=== PATIENT | female | born 1955 | race Caucasian/White ===

== ENCOUNTER 2017-07-21 09:21 | Inpatient (IN) | payer OTHER ==
[2017-07-21] MEDS ORDERED: GELATIN SIZE 100 SPONGE (10:14)
[2017-07-21] MEDS ORDERED: SURGIFOAM POWDER 1 GM KIT (10:14)
[2017-07-21] MEDS ORDERED: LIDOCAINE 1%/EPI 30 ML INJ (10:14)
[2017-07-21] MEDS ORDERED: THROMBIN 5000 UNIT VIAL (10:14)
[2017-07-21] MEDS ORDERED: HEPARIN 1000 UNITS/ML 10 ML INJ (10:15)
[2017-07-21] MEDS: D5W-0.45 NACL + KCL 20 MEQ 1,000 ML IV (12:06)
[2017-07-21] MEDS ORDERED: FENTAnyl 50 MCG/ML VIAL (12:11)
[2017-07-21] MEDS ORDERED: MIDAZOLAM 1 MG/ML 2 ML INJ (12:13)
[2017-07-21] MEDS ORDERED: LIDOCAINE 2% (SDV) 5 ML INJ (12:14)
[2017-07-21] MEDS ORDERED: PROPOFOL 20 ML (12:14)
[2017-07-21] MEDS ORDERED: SUCCINYLCHOLINE CHLORIDE 100 MG/5 ML SYG IV (12:14)
[2017-07-21] MEDS ORDERED: ROCURONIUM 50 MG INJ ×2 (12:14)
[2017-07-21] MEDS ORDERED: ONDANSETRON 4 MG INJ IV ×2 (12:30→14:00)
[2017-07-21] MEDS ORDERED: HYDROmorphONE 0.2 MG/ML PCA IV (12:30)
[2017-07-21] MEDS ORDERED: BISACODYL 10 MG SUPP PR (12:30)
[2017-07-21] MEDS ORDERED: ACETAMINOPHEN 325 MG TAB PO (12:30)
[2017-07-21] MEDS ORDERED: AL HYDROX/MG HYDROX/SIMETH 30 ML CUP PO (12:30)
[2017-07-21] MEDS ORDERED: DIPHENHYDRAMINE 50 MG INJ IV (12:30)
[2017-07-21] MEDS ORDERED: NALOXONE (0.4 MG/ML) INJ IV (12:30)
[2017-07-21] MEDS: CEFAZOLIN 1 GM/50 ML (PMX) 50 ML IVPB (12:30)
[2017-07-21] MEDS ORDERED: HYDROmorphONE 0.5 MG/0.5 ML SYG IV (12:30)
[2017-07-21] MEDS ORDERED: HYDROCODONE/APAP (10/325) TAB PO ×2 (12:30)
[2017-07-21] MEDS ORDERED: CEPASTAT LOZENGE MT (12:30)
[2017-07-21] MEDS ORDERED: CYCLOBENZAPRINE 10 MG TAB PO (12:30)
[2017-07-21] MEDS ORDERED: PHENYLephrine (100 MCG/ML) 5ML SYG (12:39)
[2017-07-21] MEDS ORDERED: PHENYLephrine 10 MG INJ (12:59)
[2017-07-21] MEDS ORDERED: NACL 0.9% 3 ML SYG IV (14:00)
[2017-07-21] MEDS ORDERED: DOCUSATE SODIUM 100 MG CAP PO ×2 (14:00→21:00)
[2017-07-21] MEDS: SOD CHLORIDE 0.9% 1,000 ML IV ×2 (15:02→20:56)
[2017-07-21 15:05] LABS: ADD MAN DIFF? NO
[2017-07-21 15:12] LABS: BASOPHIL # 0.1 10^3/ul (0.0-0.1); BASOPHILS % 0.6 % (0.0-2.0); EOSINOPHILS % 0.4 % (0.0-7.0); HEMATOCRIT 41.9 % (37.0-47.0); LYMPHOCYTES # 1.9 10^3/ul (0.8-2.9); LYMPHOCYTES % 23.8 % (15.0-51.0); MEAN CORPUSCULAR HEMOGLOBIN 29.9 pg (29.0-33.0); MEAN CORPUSCULAR HGB CONC 33.4 g/dl (32.0-37.0); MEAN CORPUSCULAR VOLUME 89.3 fl (82.0-101.0); MONOCYTE # 0.7 10^3/ul (0.3-0.9); MONOCYTES % 8.1 % (0.0-11.0); NEUTROPHIL # 5.4 10^3/ul (1.6-7.5); NEUTROPHILS % 66.7 % (39.0-77.0); PLATELET COUNT 275 10^3/UL (140-415); RED BLOOD COUNT 4.69 10^6/ul (4.20-5.40); RED CELL DISTRIBUTION WIDTH 12.5 % (11.5-14.5)
[2017-07-21 15:12] LABS: WHITE BLOOD COUNT 8.1 10^3/ul (4.8-10.8)
[2017-07-21 15:32] LABS: ANION GAP 13 (8-16); BLOOD UREA NITROGEN 15 mg/dl (7-20); CALCIUM 8.8 mg/dl (8.4-10.2); CARBON DIOXIDE 25 mmol/L (21-31); CHLORIDE 107 mmol/L (97-110); GLUCOSE 88 mg/dl (70-220); MAGNESIUM 1.8 mg/dl (1.7-2.5); POTASSIUM 4.4 mmol/L (3.5-5.1); SODIUM 141 mmol/L (135-144)
[2017-07-21] MEDS: PHENYLephrine 20MG IN 250 ML 250 ML IV (15:39)
[2017-07-21 15:43] LABS: TROPONIN-I 0.021 ng/ml (0.00-0.12)
[2017-07-21] MEDS: AMIODARONE 150MG/D5W BOLUS 100 ML IV (15:45)
[2017-07-21] MEDS: DILTIAZEM-D5W 125MG/125ML DRIP 125 ML IV (16:50)
[2017-07-21] MEDS: ALPRAZOLAM 0.25 MG TAB PO (18:20)
[2017-07-21] MEDS: DIGOXIN 500 MCG INJ IV ×2 (19:05→21:01)
[2017-07-21] MEDS: MAGNESIUM SULFATE 2 GM/50 ML 50 ML IVPB (19:05)
[2017-07-21 20:34] LABS: TROPONIN-I 0.021 ng/ml (0.00-0.12)
[2017-07-21] MEDS: ZOLPIDEM 5 MG TAB PO (21:01)
[2017-07-21] MEDS: ENOXAPARIN 80 MG/0.8 ML SYG SC (21:03)
[2017-07-21] MEDS: PHENYLephrine 40 MG in DEXTROSE 5% 496 ML IV (22:13)
[2017-07-22] MEDS: DILTIAZEM-D5W 125MG/125ML DRIP 125 ML IV (01:26)
[2017-07-22] MEDS: ALPRAZOLAM 0.25 MG TAB PO (01:56)
[2017-07-22] MEDS: HYDROCODONE/APAP (5/325) TAB PO ×2 (01:57→08:40)
[2017-07-22] MEDS: PHENYLephrine 40 MG in DEXTROSE 5% 496 ML IV ×2 (03:24→16:06)
[2017-07-22] MEDS: ACETAMINOPHEN 325 MG TAB PO (04:11)
[2017-07-22 05:18] LABS: ABNORMAL IP MESSAGE 1; HEMATOCRIT 38.3 % (37.0-47.0); HEMOGLOBIN 12.9 g/dl (12.0-16.0); MEAN CORPUSCULAR HEMOGLOBIN 30.1 pg (29.0-33.0); MEAN CORPUSCULAR HGB CONC 33.7 g/dl (32.0-37.0); MEAN CORPUSCULAR VOLUME 89.3 fl (82.0-101.0); MEAN PLATELET VOLUME 10.2 fl (7.4-10.4); PLATELET COUNT 267 10^3/UL (140-415); RED BLOOD COUNT 4.29 10^6/ul (4.20-5.40); RED CELL DISTRIBUTION WIDTH 12.9 % (11.5-14.5)
[2017-07-22 06:01] LABS: ANION GAP 15 (8-16); BLOOD UREA NITROGEN 12 mg/dl (7-20); CALCIUM 8.3 mg/dl (8.4-10.2); CARBON DIOXIDE 25 mmol/L (21-31); CHLORIDE 108 mmol/L (97-110); CREATININE 0.79 mg/dl (0.44-1.00); GLUCOSE 140 mg/dl (70-220); MAGNESIUM 2.3 mg/dl (1.7-2.5); PHOSPHORUS 3.1 mg/dl (2.5-4.9); POTASSIUM 4.7 mmol/L (3.5-5.1); SODIUM 143 mmol/L (135-144)
[2017-07-22] MEDS: SOD CHLORIDE 0.9% 1,000 ML IV ×4 (06:14→20:46)
[2017-07-22 06:19] LABS: ADD MAN DIFF? YES; POSITIVE DIFF @See below
[2017-07-22] MEDS: ENOXAPARIN 80 MG/0.8 ML SYG SC (08:39)
[2017-07-22 10:54] LABS: ANISOCYTOSIS 2+ (0-0); GIANT THROMBO% (M) 1 % (0-0); LYMPHOCYTES % (M) 12 % (15-51); MICROCYTOSIS 2+ (0-0); MONOCYTE #M 0.6 10^3/ul (0.3-0.9); MONOCYTES % (M) 7 % (0-11); MYELOCYTES % (M) 1 % (0-0); PLATELET ESTIMATE NORMAL; POLYCHROMASIA 2+ (0-0); REACTIVE LYMPHOCYTES% (M) 1 % (0-0); SEGMENTED NEUTROPHILS (M) % 79 % (39-77); SMUDGE%M 1 % (0-0)
[2017-07-22] MEDS: IBUPROFEN 400 MG TAB PO (11:55)
[2017-07-22] MEDS: SOD CHLORIDE 0.9% 100 ML (18:01)
[2017-07-22] MEDS: IOHEXOL 100 ML (18:02)
[2017-07-22 19:02] LABS: ADD UMIC YES; UR ASCORBIC ACID NEGATIVE (NEGATIVE); UR BILIRUBIN (Dip) NEGATIVE (NEGATIVE); UR BLOOD (Dip) 2+ mg/dL (NEGATIVE); UR CLARITY CLEAR (CLEAR); UR COLOR YELLOW (YELLOW); UR GLUCOSE (Dip) NEGATIVE (NEGATIVE); UR KETONES (Dip) NEGATIVE (NEGATIVE); UR LEUKOCYTE ESTERASE (Dip) NEGATIVE Leu/ul (NEGATIVE); UR NITRITE (Dip) NEGATIVE (NEGATIVE); UR RBC 163 /HPF (0-5); UR SPECIFIC GRAVITY (Dip) 1.017 (1.003-1.030); UR TOTAL PROTEIN (Dip) NEGATIVE (NEGATIVE); UR UROBILINOGEN (Dip) NEGATIVE (NEGATIVE); UR WBC 3 /HPF (0-5)
[2017-07-22] MEDS: ZOLPIDEM 5 MG TAB PO (20:43)
[2017-07-22] MEDS: MAGNESIUM OXIDE 400 MG TAB PO (20:43)
[2017-07-22] MEDS: ASPIRIN (EC) 81 MG TAB PO (20:44)
[2017-07-22] MEDS: METOPROLOL (XL) 25 MG TAB PO (20:58)
[2017-07-23 05:36] LABS: BASOPHILS % 0.5 % (0.0-2.0); EOSINOPHILS # 0.1 10^3/ul (0.0-0.5); EOSINOPHILS % 1.4 % (0.0-7.0); HEMATOCRIT 36.5 % (37.0-47.0); HEMOGLOBIN 12.3 g/dl (12.0-16.0); LYMPHOCYTES # 1.8 10^3/ul (0.8-2.9); LYMPHOCYTES % 43.3 % (15.0-51.0); MEAN CORPUSCULAR HEMOGLOBIN 30.3 pg (29.0-33.0); MEAN CORPUSCULAR HGB CONC 33.7 g/dl (32.0-37.0); MEAN CORPUSCULAR VOLUME 89.9 fl (82.0-101.0); MEAN PLATELET VOLUME 9.9 fl (7.4-10.4); MONOCYTE # 0.4 10^3/ul (0.3-0.9); MONOCYTES % 9.8 % (0.0-11.0); NEUTROPHIL # 1.9 10^3/ul (1.6-7.5); NEUTROPHILS % 44.8 % (39.0-77.0); PLATELET COUNT 170 10^3/UL (140-415); RED BLOOD COUNT 4.06 10^6/ul (4.20-5.40); RED CELL DISTRIBUTION WIDTH 12.8 % (11.5-14.5)
[2017-07-23 05:36] LABS: WHITE BLOOD COUNT 4.2 10^3/ul (4.8-10.8)
[2017-07-23 05:37] LABS: ADD MAN DIFF? NO
[2017-07-23 06:00] LABS: CHOL/HDL RATIO 2.8 RATIO; HDL CHOLESTEROL 57 mg/dl (35-98); LDL CHOLESTEROL,CALCULATED 92 mg/dl; TRIGLYCERIDES 71 mg/dl (0-149)
[2017-07-23 06:00] LABS: CHOLESTEROL 163 mg/dl (100-200)
[2017-07-23 06:11] LABS: ANION GAP 13 (8-16); BLOOD UREA NITROGEN 8 mg/dl (7-20); CALCIUM 8.8 mg/dl (8.4-10.2); CARBON DIOXIDE 27 mmol/L (21-31); CHLORIDE 108 mmol/L (97-110); CREATININE 0.66 mg/dl (0.44-1.00); GLUCOSE 91 mg/dl (70-220); MAGNESIUM 1.9 mg/dl (1.7-2.5); PHOSPHORUS 3.1 mg/dl (2.5-4.9); POTASSIUM 4.2 mmol/L (3.5-5.1); SODIUM 144 mmol/L (135-144)
[2017-07-23] MEDS: ASPIRIN (EC) 81 MG TAB PO (08:25)
[2017-07-23] MEDS: MAGNESIUM OXIDE 400 MG TAB PO (08:25)
[2017-07-23] MEDS: IBUPROFEN 400 MG TAB PO (08:39)
[2017-07-23] MEDS: METOPROLOL 25 MG TAB PO (08:40)
== END 2017-07-23 11:30 | disposition home or self-care (01) | DRG 552 ==
LOC: REC 09:21 → ICU 13:30
PROVIDERS: Specialist
PROC: 5A2204Z Restoration of Cardiac Rhythm, Single (ICD-10-PCS; principal; 2017-07-21 12:00)
DX: M50.121 Cervical disc disorder at C4-C5 level with radiculopathy (principal); R57.9 Shock, unspecified; I25.110 Atherosclerotic heart disease of native coronary artery with unstable angina pectoris; I48.91 Unspecified atrial fibrillation; Z53.09 Procedure and treatment not carried out because of other contraindication; I27.20 Pulmonary hypertension, unspecified; R51 Headache; E78.5 Hyperlipidemia, unspecified; E66.3 Overweight; M48.02 Spinal stenosis, cervical region; G47.00 Insomnia, unspecified; Z82.49 Family history of ischemic heart disease and other diseases of the circulatory system
CPT/HCPCS: 71045; 71275; 80048; 80061; 81001; 82533; 83735; 84100; 84443; 84484; 85025; 86999; 87081; 87086; 93005; 93306; 93970